=== PATIENT | male | born 1970 | race Caucasian/White ===

== ENCOUNTER 2018-01-20 19:45 | Emergency (ER) | payer OTHER ==
[2018-01-20] MEDS ORDERED: oxyCODONE/Acetamin 5/325 MG* TAB PO ONE (21:37)
[2018-01-20] MEDS ORDERED: Lidocaine 1%* 5 ML VIAL INJ ONE (21:42)
[2018-01-20] MEDS ORDERED: Ketorolac INJ* 60 MG/2 ML VIAL IM ONE (21:44)
--- NOTE | 2018-01-20 21:58 | ED ---
Upper Extremity Pain - HPI Summary HPI Summary: 47-year-old male presents with right wrist injury today. He states he fell when he was snowboarding. He landed on his outstretched hand. He admits some numbness in his fingers. He denies any previous injury to this area. 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 He denies any other injury. He denies any loss consciousness. Pain is a 10 out of 10. Pain is worse with movement. only wants ibuprofen as has history of drug abuse. - History of Current Complaint Chief Complaint: EDExtremityUpper Stated Complaint: RT WRIST INJURY Time Seen by Provider: 01/20/18 21:35 - Allergies/Home Medications Allergies/Adverse Reactions: Allergies Allergy/AdvReac Type Severity Reaction Status Date / Time Penicillins Allergy Hives Verified 01/20/18 19:52 PMH/Surg Hx/FS Hx/Imm Hx Endocrine/Hematology History: Denies: Hx Anticoagulant Therapy Cardiovascular History: Denies: Hx Myocardial Infarction Infectious Disease History: No Infectious Disease History: Denies: Traveled Outside the [place] in Last 30 Days - Family History Known Family History: Positive: Hypertension - Social History Alcohol Use: None Substance Use Type: Reports: None Smoking Status (MU): Never Smoked Tobacco Review of Systems Negative: Fever Negative: Chest Pain Negative: Shortness Of Breath Positive: Myalgia - right wrist pain All Other Systems Reviewed And Are Negative: Yes Physical Exam Triage Information Reviewed: Yes Vital Signs On Initial Exam: Initial Vitals Temp Pulse Resp BP Pulse Ox 96.7 F 88 20 151/88 98 01/20/18 19:48 01/20/18 19:48 01/20/18 19:48 01/20/18 19:48 01/20/18 19:48 Vital Signs Reviewed: Yes Appearance: Positive: Well-Appearing Skin: Positive: Warm, Dry Head/Face: Positive: Normal Head/Face Inspection Eyes: Positive: Normal, Conjunctiva Clear Respiratory/Lung Sounds: Positive: Clear to Auscultation, Breath Sounds Present Cardiovascular: Positive: Normal, RRR Musculoskeletal: Positive: Limited @ - right wrist, Other - deformity noted to right wrist, good pulse, sensation grossly intact, capillary refill<2 secs, nontender right elbow, tenderness right wrist Neurological: Positive: Normal Psychiatric: Positive: Normal Procedures - Splinting Location: right wrist Hand-Made Type: orthoglass Splint: sugar-tong Pre-Proc Neuro Vasc Exam: normal Post-Proc Neuro Vasc Exam: normal - Joint Reduction Joint Reduction Site: wrist (R) Conscious Sedation: No - hematoma block Reduction Attempts: 1 - attempt manual reduction Pre-Procedure NV Exam: Yes Diagnostics - Vital Signs Vital Signs Temp Pulse Resp BP Pulse Ox 01/20/18 19:48 96.7 F 88 20 151/88 98 - Laboratory Lab Statement: Any lab studies that have been ordered have been reviewed, and results considered in the medical decision making process. - Radiology wrist Xray Interpretation: Positive (See Comments) - right radius fracture Radiology Interpretation Completed By: Radiologist Course/Dx - Course Course Of Treatment: 47-year-old male presents with right wrist injury today. He states he fell when he was snowboarding. He landed on his outstretched hand. He admits some numbness in his fingers. He denies any previous injury to this area. 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 He denies any other injury. He denies any loss consciousness. Pain is a 10 out of 10. Pain is worse with movement. only wants ibuprofen as has history of drug abuse. on exam deformity to right wrist. Neurovascularly intact. Range of motion of fingers. X-ray read as knee as radius fracture. Performed a hematoma block and manually reduced fracture. feeling better after reduction. Placed in sugar tong splint. Will have follow-up with orthopedic. Patient understands and agrees with plan. - Diagnoses Differential Diagnosis/HQI/PQRI: Positive: Fracture (Closed), Strain, Sprain Provider Diagnoses: Right wrist fracture Discharge - Discharge Plan Condition: Good Disposition: HOME Patient Education Materials: Wrist Fracture in Adults (ED) Referrals: Non Staff,Doctor [Primary Care Provider] - Danny Souza MD [Medical Doctor] - Additional Instructions: Keep elbow in sling as needed Keep splint on area and keep dry Call ortho office monday to set up appointment for follow up Use ibuprofen for pain every 6 hours Ice, elevate Return to ED if develop any new or worsening symptoms
[2018-01-20 22:57] VITALS: BP 115/78
--- NOTE | 2018-01-21 08:14 | RAD ---
Indication: Right wrist injury 3 views of the wrist demonstrates comminuted fracture distal radius with dorsal angulation. There is mild impaction noted. IMPRESSION: Comminuted fracture distal radius with dorsal angulation.
--- NOTE | 2018-01-22 16:04 | RAD ---
Indication: Right forearm injury. 2 views of the right forearm demonstrates comminuted fracture distal radius with impaction. Dorsal angulation is noted. The remainder of the radius and ulna are unremarkable. IMPRESSION: Comminuted fracture distal radius.
== END 2018-01-20 22:56 | disposition home or self-care (01) ==
LOC: ED 19:45
DX: S52.501A Unspecified fracture of the lower end of right radius, initial encounter for closed fracture (principal); W00.9XXA Unspecified fall due to ice and snow, initial encounter; Y93.23 Activity, snow (alpine) (downhill) skiing, snowboarding, sledding, tobogganing and snow tubing; Y92.9 Unspecified place or not applicable
CPT/HCPCS: 96372; 99282; J1885